=== PATIENT | female | born 1980 | race Two or more races ===

== ENCOUNTER 2018-11-30 19:00 | Emergency (ER) | payer MEDICAID ==
[~2018-11-30] VITALS: Ht 157.5 cm; Wt 59.0 kg
--- NOTE | 2018-11-30 19:00 | NUR ---
ER Nurse Note: Patient walked in to ER from home due to anxiety. Patient alert and oriented x4 and amulatory. Skin clean and intact. Calm and cooperative. No acute distress noted at this time. per pt, she took a nap and when she woke up she felt palpitation. heartrate at 96/min at this time.
[2018-11-30 19:08] VITALS: BP 138/84
--- NOTE | 2018-11-30 19:30 | NUR ---
ED Nurse Note: Received patient from Luciano GaribayRN patient at no distress at this time, will continue to monitor
[2018-11-30 19:49] LABS: APPEARANCE,URINE CLEAR; BILIRUBIN, URINE NEGATIVE (NEGATIVE); GLUCOSE, URINE (UA) 4+ (NEGATIVE); KETONES,URINE 1+ (NEGATIVE); LEUKOCYTE ESTERASE ,URINE 2+ (NEGATIVE); NITRITE,URINE NEGATIVE (NEGATIVE); PH,URINE 5 (4.5-8.0); PROTEIN,URINE 2+ (NEGATIVE); UROBILINOGEN,URINE NORMAL MG/DL (0.0-1.0)
--- NOTE | 2018-11-30 20:14 | Emergency Room Report ---
History of Present Illness General Chief Complaint: General Complaint Source: Patient, EMS Present Illness HPI 37-year-old female with history of diabetes currently controlled with metformin and insulin as well as anxiety brought in by paramedics after feeling palpitation and hyperventilation while sitting at home. Patient reports that she used to take the Lorazepam however she stopped taking it. Reports that she often gets palpitation and feels lightheadedness as well as shortness of breath but severely anxious. Patient denies any suicidal homicidal ideation. Reports that she has been sleeping okay at night and has been having good appetite. Patient uses insulin twice a day has already given herself the nightly dose prior to coming. Patient denies any visual or auditory hallucination, grandiosity, impulsiveness. Patient has not yet been to a psychiatrist and has an upcoming appointment with a pending referral in mid December. Patient arrives to the paramedics with stable vital signs. Cooperative, and appears calm. Denies any urinary symptoms no abdominal pain. Reports that she does not use any drugs, denies tobacco smoke and alcohol intake. Patient reports that she has a Nexplanon placed in over a year ago and is sexually active with significant other. Last menstrual period was a month ago. Allergies: Coded Allergies: No Known Allergies (Unverified , 11/30/18) Patient History Past Medical History: see triage record Past Surgical History: unable to obtain Family History: none Last Menstrual Period: 11/26/18 Now: No Immunizations: UTD Reviewed Nursing Documentation: PMH: Agreed; PSxH: Agreed Nursing Documentation-PM Past Medical History: No History, Except For Hx Diabetes: Yes Review of Systems All Other Systems: negative except mentioned in HPI Physical Exam Vital Signs Date Time Temp Pulse Resp B/P (MAP) Pulse Ox O2 Delivery O2 Flow Rate FiO2 11/30/18 18:55 98.2 96 16 138/84 (102) 98 Room Air Sp02 EP Interpretation: reviewed, normal General Appearance: alert/responsive, no apparent distress, GCS 15, non-toxic Head: atraumatic Eyes: PERRL, lids + conjunctiva normal ENT: hearing intact, no angioedema Neck: supple/symm/no masses, no meningismus Respiratory: effort normal, no rhonchi, no wheezing, no retractions, chest symmetrical Cardiovascular: regular rate, rhythm, no murmur, gallop, rub, no edema Cardiovascular #2: 2+ carotid (R), 2+ carotid (L), 2+ radial (R), 2+ radial (L) , 2+ dorsalis pedis (R), 2+ dorsalis pedis (L) Gastrointestinal: non-tender, no mass, non-distended, no rebound/guarding, normal bowel sounds, no bruit Musculoskeletal: gait & station normal, digits & nails normal Neurologic: oriented x3, sensory intact, normal speech Psychiatric: normal inspection, judgment & insight normal Skin: no rash, well hydrated Lymphatic: normal inspection Medical Decision Making PA Attestation All my diagnosis and treatment plans were reviewed ad discussed with my supervising physician Dr. Baez Diagnostic Impression: Primary Impression: Anxiety Additional Impression: UTI (urinary tract infection) ER Course 37-year-old female with history of diabetes currently controlled with metformin and insulin as well as anxiety brought in by paramedics after feeling palpitation and hyperventilation while sitting at home. Patient reports that she used to take the Lorazepam however she stopped taking it. Reports that she often gets palpitation and feels lightheadedness as well as shortness of breath but severely anxious. Patient denies any suicidal homicidal ideation. Reports that she has been sleeping okay at night and has been having good appetite. Patient uses insulin twice a day has already given herself the nightly dose prior to coming. Patient denies any visual or auditory hallucination, grandiosity, impulsiveness. Patient has not yet been to a psychiatrist and has an upcoming appointment with a pending referral in mid December. Patient arrives to the paramedics with stable vital signs. Cooperative, and appears calm. Denies any urinary symptoms no abdominal pain. Reports that she does not use any drugs, denies tobacco smoke and alcohol intake. Patient reports that she has a Nexplanon placed in over a year ago and is sexually active with significant other. Last menstrual period was a month ago. Ddx considered but are not limited to: generalized anxiety disorder, panic attack, depression with psychotic feature, bipolar disorder, drug overdose Vital signs: are WNL, pt. is afebrile H&PE are most consistent with: Anxiety, incidental finding of UTI ORDERS: CBC, CMP, UA, urine test, tox screen, chest x-ray, EKG, Macrobid ED INTERVENTIONS: NS bolus Glucose is a slightly elevated due to patient eating prior to coming to the ED. Patient is insulin-dependent and compliant. Patient will take nightly dose of metformin when going home. DISCHARGE: At this time pt. is stable for d/c to home. Will provide printed patient care instructions, and any necessary prescriptions. Care plan and follow up instructions have been discussed with the patient prior to discharge. Patient to follow-up with her primary care provider also I gave her a list of mental health facilities that she can contact and seek psychiatric help. If worsening symptoms return to emergency room. At time of discharge patient denies suicidal and homicidal ideations. Patient follow with primary care physician. EKG Diagnostic Results Rate: normal Rhythm: NSR ST Segments: no acute changes Other Impression No acute ST changes Chest X-Ray Diagnostic Results Chest X-Ray Diagnostic Results : Chest X-Ray Ordered: Yes # of Views/Limited/Complete: 1 View Indication: Other EP Interpretation: Yes Interpretation: no consolidation, no effusion, no pneumothorax Impression: No acute disease Electronically Signed by: Elvira Blair PA-C Last Vital Signs Date Time Temp Pulse Resp B/P (MAP) Pulse Ox O2 Delivery O2 Flow Rate FiO2 11/30/18 19:08 96 16 Room Air 11/30/18 19:08 98.2 138/84 98 Disposition: HOME, SELF-CARE Condition: Stable Patient Instructions: Generalized Anxiety Disorder, Urinary Tract Infection Additional Instructions: Follow-up with a psychiatrist for management of anxiety. If worsening symptoms return to the emergency room. Elvira George Nov 30, 2018 20:14
[2018-11-30 20:19] LABS: ANION GAP 11 mmol/L (5-15); BLOOD UREA NITROGEN 8 mg/dL (7-18); CALCIUM 9.1 MG/DL (8.5-10.1); CARBON DIOXIDE 24 MMOL/L (21-32); CHLORIDE 103 MMOL/L (98-107); CREATININE 0.8 MG/DL (0.55-1.30); POTASSIUM 3.4 MMOL/L (3.5-5.1); SODIUM 138 MMOL/L (136-145)
[2018-11-30 20:20] LABS: COLOR,URINE YELLOW
[2018-11-30 20:21] LABS: BASOPHILS % (AUTO) 0.8 % (0.0-2.0); HEMOGLOBIN 13.6 G/DL (12.0-16.0); LYMPHOCYTES % (AUTO) 39.9 % (20.0-45.0); MEAN CORPUSCULAR VOLUME 84 FL (80-99); MONOCYTES % (AUTO) 5.1 % (1.0-10.0); NEUTROPHILS % (AUTO) 53.3 % (45.0-75.0); PLATELET COUNT 258 K/UL (150-450); RED BLOOD COUNT 4.65 M/UL (4.20-5.40); WHITE BLOOD COUNT 7.7 K/UL (4.8-10.8)
[2018-11-30 20:24] LABS: ALANINE AMINOTRANSFERASE 18 U/L (12-78); ALBUMIN 3.8 G/DL (3.4-5.0); ALBUMIN/GLOBULIN RATIO 0.9 (1.0-2.7); ALKALINE PHOSPHATASE 48 U/L (46-116); ASPARTATE AMINO TRANSFERASE 10 U/L (15-37); BILIRUBIN,TOTAL 0.6 MG/DL (0.2-1.0)
[2018-11-30] MEDS ORDERED: NITROFURANTOIN100 M2 ORAL (20:47)
[2018-11-30 20:50] VITALS: BP 138/84
--- NOTE | 2018-11-30 20:55 | NUR ---
ER DISCHARGE NOTE: Patient is cleared to be discharged per ERMD, pt is aox4, on room air, with stable vital signs. pt was given dc and prescription instructions, pt was able to verbalize understanding, pt id band and iv site removed without complications. pt is able to ambulate with steady gait. pt took all belongings.
--- NOTE | 2018-12-01 12:44 | Diagnostic Imaging Report ---
Indication: Chest pain Technique: One view of the chest Comparison: none Findings: Lungs and pleural spaces are clear. Heart size is normal Impression: No acute process
== END 2018-11-30 21:15 | disposition home or self-care (01) ==
LOC: EDBD 19:00 → EMR 21:14
DX: F41.9 Anxiety disorder, unspecified (principal); N39.0 Urinary tract infection, site not specified; E11.9 Type 2 diabetes mellitus without complications; Z79.84 Long term (current) use of oral hypoglycemic drugs; Z79.4 Long term (current) use of insulin
CPT/HCPCS: 36415; 71045; 80053; 80307; 81001; 81025; 85025; 87086; 93005; 96360; G0480; Z7502; 99284

== ENCOUNTER → 2019-02-15 | Emergency (ER) | payer MEDICAID ==
[~2019-02-15] VITALS: Ht 162.6 cm; Wt 59.0 kg
[~2019-02-15] MED LIST: BACTRIM DS TAB1 EAC1 ORAL; FLUCONAZOLE100 MG ORAL; Fluconazole 150mg tab ORAL ONE; Lidocaine 1% MPF 10mg/ml 5ml INJ ONE; NITROFURANTOIN100 M2 ORAL
[2019-02-15 15:42] VITALS: BP 118/83
[2019-02-15 16:32] LABS: APPEARANCE,URINE CLEAR; BILIRUBIN, URINE NEGATIVE (NEGATIVE); COLOR,URINE PALE YELLOW; GLUCOSE, URINE (UA) 4+ (NEGATIVE); KETONES,URINE NEGATIVE (NEGATIVE); LEUKOCYTE ESTERASE ,URINE NEGATIVE (NEGATIVE); NITRITE,URINE NEGATIVE (NEGATIVE); PH,URINE 6 (4.5-8.0); PROTEIN,URINE NEGATIVE (NEGATIVE); UROBILINOGEN,URINE NORMAL MG/DL (0.0-1.0)
--- NOTE | 2019-02-15 16:49 | Emergency Room Report ---
History of Present Illness General Chief Complaint: Female Urogenital Problems Source: Patient Present Illness HPI 38-year-old female with history of type 2 diabetes controlled, and recent UTI here complaining of no improvement of UTI symptoms. Also complains of white clumpy vaginal discharge x3 days. Reports the last time she was sexually active was 2 weeks ago however symptoms started a week ago. Patient finished her antibiotic that was prescribed last time to her at [facility] reports that she has not noticed any improvement, has not yet follow-up with her primary care provider. Complains of low back pain however no CVA tenderness noted. Denies nausea vomiting, fever and chills. Denies diffuse abdominal pain, chest pain, shortness of breath, palpitation, no other associated symptoms. Denies Allergies: Coded Allergies: No Known Allergies (Unverified , 11/30/18) Patient History Past Medical History: see triage record Past Surgical History: unable to obtain Pertinent Family History: none Last Menstrual Period: 01/24/2019 Now: No Immunizations: UTD Reviewed Nursing Documentation: PMH: Agreed; PSxH: Agreed Nursing Documentation-PMH Past Medical History: No History, Except For Hx Diabetes: Yes Review of Systems All Other Systems: negative except mentioned in HPI Physical Exam Vital Signs Date Time Temp Pulse Resp B/P (MAP) Pulse Ox O2 Delivery O2 Flow Rate FiO2 02/15/19 15:42 98.2 103 18 118/83 (95) 95 Room Air Sp02 EP Interpretation: reviewed, normal General Appearance: no apparent distress, alert, GCS 15, non-toxic Head: normocephalic, atraumatic ENT: hearing grossly normal, normal pharynx, no angioedema, normal voice Neck: full range of motion, supple, supple/symm/no masses Respiratory: chest non-tender, lungs clear, normal breath sounds, no rhonchi, no retraction, speaking full sentences Cardiovascular #1: regular rate, rhythm, no edema, no murmur Gastrointestinal: non tender, soft Rectal: deferred Genitourinary: no CVA tenderness Musculoskeletal: back normal Neurologic: alert, motor strength/tone normal, oriented x3, sensory intact, responsive, speech normal Psychiatric: normal inspection, judgement/insight normal Skin: no rash Lymphatic: no adenopathy Medical Decision Making PA Attestation All diagnoses and treatment plans were reviewed and discussed with my supervising physician Dr. Farah Diagnostic Impression: Primary Impression: Dysuria Additional Impression: Vaginitis ER Course 38-year-old female with history of type 2 diabetes controlled, and recent UTI here complaining of no improvement of UTI symptoms. Also complains of white clumpy vaginal discharge x3 days. Reports the last time she was sexually active was 2 weeks ago however symptoms started a week ago. Patient finished her antibiotic that was prescribed last time to her at [facility] reports that she has not noticed any improvement, has not yet follow-up with her primary care provider. Complains of low back pain however no CVA tenderness noted. Denies nausea vomiting, fever and chills. Denies diffuse abdominal pain, chest pain, shortness of breath, palpitation, no other associated symptoms. Denies Ddx considered but are not limited to: UTI, pyelonephritis, urinary incontinence , prolapsed bladder Vital signs: are WNL, pt. is afebrile H&PE are most consistent with: UTI, vaginitis most likely secondary to yeast infection ORDERS: UA, urine cx, urine test, bactrim ED INTERVENTIONS: Rocephin, as patient is concerned about her kidneys, Diflucan DISCHARGE: At this time pt. is stable for d/c to home. Will provide printed patient care instructions, and any necessary prescriptions. Care plan and follow up instructions have been discussed with the patient prior to discharge. No obvious urinary tract infection noted however due to patient diabetes status and presentation patient to be treated with antibiotics. Patient is to follow-up with primary care provider due to recurrent urinary tract infection. At this time no further blood work or imaging needed as patient does not have any CVA tenderness. Patient to be treated as outpatient. Last Vital Signs Date Time Temp Pulse Resp B/P (MAP) Pulse Ox O2 Delivery O2 Flow Rate FiO2 02/15/19 15:42 98.2 18 118/83 95 Room Air 02/15/19 15:42 103 Disposition: HOME, SELF-CARE Condition: Stable Scripts Fluconazole (FLUCONAZOLE) 100 Mg Tablet 150 MG ORAL DAILY for 3 Days, #3 TAB 0 Refills Prov: Elvira George 02/15/19 Trimethoprim/Sulfamethoxazole 160/800* (BACTRIM DS TABLET*) 1 Each Tablet 1 TAB ORAL TWICE A DAY for 7 Days, #14 TAB Prov: Elvira George 02/15/19 Patient Instructions: Vaginitis, Urinary Tract Infection Additional Instructions: Take medication as directed, follow-up with your hosted services analyst, if worsening symptoms return to emergency room Elvira George Feb 15, 2019 16:49
[2019-02-15 17:31] VITALS: BP 118/83
--- NOTE | 2019-02-15 17:33 | NUR ---
discharged home with instruction and rx follow up with pmd
== END | disposition home or self-care (01) ==
LOC: EMR 16:18
DX: N76.0 Acute vaginitis (principal); R30.0 Dysuria; E11.9 Type 2 diabetes mellitus without complications; M54.5 Low back pain
CPT/HCPCS: 81003; 81025; 96372; 96374; J0696; Z7502; 99284